=== PATIENT | male | born 1975 | race Hispanic/Latino ===

== ENCOUNTER 2017-12-15 21:24 | Emergency (ER) | payer SELFPAY ==
[2017-12-15] MEDS ORDERED: HYDROcodone/Acetaminophen 5/325 mg Tablet ONE (22:51)
[2017-12-15] MEDS ORDERED: Cyclobenzaprine 10 MG TAB ONE (22:51)
== END 2017-12-15 23:03 | disposition home or self-care (01) ==
LOC: ERS 21:24
DX: S33.5XXA Sprain of ligaments of lumbar spine, initial encounter (principal); L25.9 Unspecified contact dermatitis, unspecified cause; F17.210 Nicotine dependence, cigarettes, uncomplicated; Z71.6 Tobacco abuse counseling; X50.0XXA Overexertion from strenuous movement or load, initial encounter; Y99.0 Civilian activity done for income or pay
CPT/HCPCS: 99406

== ENCOUNTER 2017-12-23 16:30 | Emergency (ER) | payer SELFPAY | END 2017-12-23 18:47 | disposition home or self-care (01) | LOC: ERS 16:30 | DX: B35.4 Tinea corporis (principal); F17.210 Nicotine dependence, cigarettes, uncomplicated | CPT/HCPCS: 99282 ==

== ENCOUNTER 2018-02-04 17:59 | Emergency (ER) | payer SELFPAY ==
[2018-02-04] MEDS ORDERED: Dexamethasone 10 MG/ML VIAL ONE (19:16)
== END 2018-02-04 19:54 | disposition home or self-care (01) ==
LOC: ERS 17:59
DX: B86 Scabies (principal); F17.210 Nicotine dependence, cigarettes, uncomplicated
CPT/HCPCS: 96372; J1100

== ENCOUNTER 2018-02-08 16:49 | Emergency (ER) | payer SELFPAY ==
[2018-02-08] MEDS ORDERED: hydrOXYzine 25 MG TAB ONE (19:03)
[2018-02-08] MEDS ORDERED: Dexamethasone 10 MG/ML VIAL ONE (19:03)
[2018-02-08] MEDS ORDERED: Dexamethasone 4 MG TAB ONE (19:03)
== END 2018-02-08 19:17 | disposition home or self-care (01) ==
LOC: ERS 16:49
DX: L20.9 Atopic dermatitis, unspecified (principal); F17.210 Nicotine dependence, cigarettes, uncomplicated
CPT/HCPCS: 99282; J1100; J8540

== ENCOUNTER 2018-03-10 16:30 | Emergency (ER) | payer SELFPAY ==
[2018-03-10] MEDS ORDERED: methylPREDNISolone Sod Succ/PF 125 MG/2 ML VIAL ONE (16:57)
== END 2018-03-10 17:40 | disposition home or self-care (01) ==
LOC: ERS 16:30
DX: T49.2X1A Poisoning by local astringents and local detergents, accidental (unintentional), initial encounter (principal); L25.3 Unspecified contact dermatitis due to other chemical products; F17.210 Nicotine dependence, cigarettes, uncomplicated
CPT/HCPCS: 96372; J2930

== ENCOUNTER 2019-04-03 15:16 | Emergency (ER) | payer SELFPAY | END 2019-04-03 16:03 | disposition home or self-care (01) | LOC: ERS 15:16 | DX: B35.3 Tinea pedis (principal); F17.210 Nicotine dependence, cigarettes, uncomplicated | CPT/HCPCS: 99282 ==

== ENCOUNTER 2019-04-22 11:21 | Emergency (ER) | payer SELFPAY ==
[2019-04-22] MEDS ORDERED: Aspirin Chewable 81 MG TAB ONE ×2 (11:37)
[2019-04-22 12:05] LABS: #Eosinphils 0.2 thou/uL (0.0-0.7); #Lymphocytes 1.8 thou/uL (1.20-3.40); #Monocytes 0.6 thou/uL (0.11-0.59); #Neutrophils 4.4 thou/uL (1.40-6.50); %Basophils 0.5 % (0.0-1.0); %Eosinophils 2.8 % (0.0-10.0); %Lymphocytes 25.9 % (21.0-51.0); %Monocytes 8.4 % (0.0-10.0); %Neutrophils 62.6 % (42.0-75.0); Hemoglobin 14.4 g/dL (14.0-18.0); Mean Corpuscular HGB CONC 33.1 g/dL (32.0-36.0); Mean Corpuscular Hemoglobin 28.7 pg (27.0-31.0); Mean Corpuscular Volume 86.5 fL (78.0-98.0); Mean Platelet Volume 6.5 fL (7.4-10.4); Platelet Count 268 thou/uL (130-400); RBC Distribution Width 12.5 % (11.5-14.5); Red Blood Cell (RBC) Count 5.02 mill/uL (4.70-6.10); White Blood Cell (WBC) Count 7.1 thou/uL (4.8-10.8)
--- NOTE | 2019-04-22 12:22 | RAD ---
RADIOGRAPH CHEST 1 VIEW: HISTORY: 43-year-old male with chest pain. FINDINGS: There are no air space densities, pulmonary edema, pneumothorax, or cardiomegaly. The lateral costop hrenic angles are sharp. IMPRESSION: No acute cardiopulmonary findings. jn [] POS: CET
[2019-04-22 12:28] LABS: ALT (SGPT) 16 U/L (8-55); AST (SGOT) 17 U/L (5-34); Alkaline Phosphatase 113 U/L (40-150); Anion Gap 10 mmol/L (10-20); BUN (Urea Nitrogen) 12 mg/dL (8.9-20.6); Bilirubin, Total 0.4 mg/dL (0.2-1.2); Calc. Creatinine Clearance 0 mL/min (70-130); Calcium 9.1 mg/dL (7.8-10.44); Carbon Dioxide 24 mmol/L (22-29); Chloride 106 mmol/L (98-107); Estimated GFR-MDRD Greater than 90; Globulin 2.4 g/dL (2.4-3.5); Glucose 103 mg/dL (70-105); Potassium 3.9 mmol/L (3.5-5.1); Protein, Total 6.4 g/dL (6.0-8.3); Sodium 136 mmol/L (136-145)
== END 2019-04-22 12:53 | disposition home or self-care (01) ==
LOC: ERS 11:21
DX: M54.12 Radiculopathy, cervical region (principal); F17.210 Nicotine dependence, cigarettes, uncomplicated
CPT/HCPCS: 36415; 71045; 80053; 84484; 85025; 93005

== ENCOUNTER 2019-06-03 13:45 | Emergency (ER) | payer SELFPAY ==
--- NOTE | 2019-06-03 15:41 | CT ---
CT LUMBAR SPINE WITHOUT CONTRAST: HISTORY: The patient was in the ER 2 weeks ago with the same symptoms. Persistent back pain. COMPARISON: None. FINDINGS: There is straightening of normal lumbar lordosis which may be due to patient position or muscle spasm . Appropriate alignment of the spinous processes, facets, and transverse processes. Vertebral body hei ght is maintained and there is no fracture. No spondylolisthesis. No spondylolysis. Visualized alimentary canal and solid organs are unremarkable. No evidence of obstructive uropathy. No retroperitoneal mass, lymphadenopathy, or hematoma. Normal caliber aorta. Symmetric attenuation of the psoas muscles. Lumbar spine and vertebral body height is maintained and there is no fracture. Sclerosis in the righ t aspect of the sacrum likely representing a small bone island. Vacuum joint phenomenon in both sacr oiliac joints. Limited evaluation of the contents of the central spinal canal and neural foramina due to technique. T11-T12 and T12-L1: No high-grade central canal stenosis or high-grade foraminal narrowing. L1-L2: Generalized disk bulge with mild central canal stenosis. Bilaterally, neural foramen are pat ent. L2-L3: Broad-based disk bulge with a right subarticular component. There is presumed mass effect up on the traversing right L3 nerve root. Moderate right and mild left neural foraminal narrowing. L3-L4: Broad-based disk bulge flattens the ventral thecal sac. Mild central canal stenosis. Mild b ilateral neural foraminal narrowing. L4-L5: Broad-based disk bulge, ligamentum flavum thickening result in mild to moderate central canal stenosis. Mild to moderate bilateral neural foraminal narrowing. L5-S1: Broad-based disk bulge with a central and left subarticular component. There is a minimal co mponent in the right subarticular zone. No significant stenosis of the thecal sac. There is left gr eater than right mass effect upon the traversing S1 nerve roots secondary to disk material in the sub articular zones. Mild bilateral foraminal narrowing. IMPRESSION: 1. No fracture. 2. Degenerative change of the lumbar spine at L5-S1 with left greater than right mass effect upon th e traversing S1 nerve roots, narrowing of the right subarticular zone at L2-L3 with presumed mass eff ect upon the traversing right L3 nerve root, mild to moderate central canal stenosis at L3-L4 due to broad-based disk bulge, and mild to moderate central canal stenosis at L4-L5 due to broad-based disk bulge. Further evaluation with a nonemergent MRI of the lumbar spine is recommended. POS: TPC
[2019-06-03] MEDS ORDERED: Ibuprofen 800 MG TAB ONE (16:11)
[2019-06-03] MEDS ORDERED: Cyclobenzaprine 10 MG TAB ONE (16:11)
== END 2019-06-03 16:12 | disposition home or self-care (01) ==
LOC: ERS 13:45
DX: M54.5 Low back pain (principal); F17.210 Nicotine dependence, cigarettes, uncomplicated
CPT/HCPCS: 72131

== ENCOUNTER 2019-08-25 20:39 | Emergency (ER) | payer SELFPAY ==
[2019-08-25] MEDS ORDERED: Ibuprofen 200 MG TAB ONE (22:20)
[2019-08-25] MEDS ORDERED: HYDROcodone/Acetaminophen 10/325 mg Tablet ONE (22:20)
[2019-08-25] MEDS ORDERED: Diazepam 5 MG TAB ONE (22:20)
== END 2019-08-25 23:50 | disposition home or self-care (01) ==
LOC: ERS 20:39
DX: M54.5 Low back pain (principal); F17.210 Nicotine dependence, cigarettes, uncomplicated
CPT/HCPCS: 93005

== ENCOUNTER 2019-10-05 15:20 | Observation (INO) | payer SELFPAY ==
[2019-10-05 15:47] LABS: #Eosinphils 0.2 thou/uL (0.0-0.7); #Monocytes 0.8 thou/uL (0.11-0.59); #Neutrophils 5.1 thou/uL (1.40-6.50); %Basophils 0.4 % (0.0-1.0); %Eosinophils 2.4 % (0.0-10.0); %Lymphocytes 24.9 % (21.0-51.0); %Monocytes 9.9 % (0.0-10.0); %Neutrophils 62.4 % (42.0-75.0); Hemoglobin 15.1 g/dL (14.0-18.0); Mean Corpuscular HGB CONC 33.1 g/dL (32.0-36.0); Mean Corpuscular Hemoglobin 28.9 pg (27.0-31.0); Mean Corpuscular Volume 87.1 fL (78.0-98.0); Mean Platelet Volume 6.6 fL (7.4-10.4); Platelet Count 278 thou/uL (130-400); RBC Distribution Width 12.5 % (11.5-14.5); Red Blood Cell (RBC) Count 5.24 mill/uL (4.70-6.10); White Blood Cell (WBC) Count 8.2 thou/uL (4.8-10.8)
--- NOTE | 2019-10-05 15:48 | RAD ---
EXAM: Single view of the chest HISTORY: Chest pain COMPARISON: 04/22/2019 FINDINGS: Single view of the chest shows a normal sized cardiomediastinal silhouette. There is no corrine dence of consolidation, mass, or pleural effusion. The bones are unremarkable. IMPRESSION: No evidence of acute cardiopulmonary disease
[2019-10-05 16:10] LABS: ALT (SGPT) 24 U/L (8-55); AST (SGOT) 18 U/L (5-34); Albumin 4.1 g/dL (3.5-5.0); Alkaline Phosphatase 113 U/L (40-110); Anion Gap 12 mmol/L (10-20); BUN (Urea Nitrogen) 10 mg/dL (8.9-20.6); Bilirubin, Total 0.2 mg/dL (0.2-1.2); CK (CPK) 223 U/L (30-200); Calc. Creatinine Clearance 0 mL/min (70-130); Calcium 8.6 mg/dL (7.8-10.44); Carbon Dioxide 24 mmol/L (22-29); Chloride 104 mmol/L (98-107); Estimated GFR-MDRD Greater than 90; Globulin 2.4 g/dL (2.4-3.5); Glucose 95 mg/dL (70-105); Lipase 11 U/L (8-78); Potassium 3.7 mmol/L (3.5-5.1); Protein, Total 6.5 g/dL (6.0-8.3); Sodium 136 mmol/L (136-145)
[2019-10-05 16:31] LABS: CKMB 2.1 ng/mL (0-6.6)
[2019-10-05] MEDS ORDERED: Aspirin Chewable 81 MG TAB ONE ×2 (16:36→16:38)
[2019-10-05 19:48] LABS: Troponin I Less than 0.010 ng/mL (< 0.028)
[2019-10-05 21:51] VITALS: BMI 32.5
[2019-10-05] MEDS ORDERED: Ketorolac Tromethamine 30 MG/ML VIAL IVP SCH (23:30)
--- NOTE | 2019-10-06 02:51 | HP ---
TIME OF ASSESSMENT: 2200 hours. CHIEF COMPLAINT: Left-sided chest and shoulder pain. HISTORY OF PRESENT ILLNESS: Mr. Licona is a 43-year-old gentleman with no known comorbidities, who presents to the emergency department today complaining of a 2-day history of left-sided chest discomfort. The patient states the pain is also involving his left shoulder that is made worse with any movement of his arm. He denies any upper extremity weakness but has noted paresthesia of the left index finger. The patient denies any trauma or injuries. Denies any heavy lifting. 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 He has not tried taking anything for pain at home. Denies any associated shortness of breath, nausea, vomiting, or diaphoresis. No lightheadedness or dizziness. In the emergency department, he underwent an EKG that showed a normal sinus rhythm with a heart rate of 98. He had a chest x-ray done, which showed no evidence of acute cardiopulmonary disease. Laboratory studies were done showing a normal blood count. Sodium was 136, potassium 3.7, BUN 10, creatinine 0.72, GFR greater than 90. LFTs are unremarkable. Alkaline phosphatase was 113. CK 223. Initial troponin indeterminate 0.030. Second and third troponin, negative. He did receive 324 mg of aspirin in the emergency department. PAST MEDICAL HISTORY: Sciatica. PAST SURGICAL HISTORY: None. SOCIAL HISTORY: The patient denies any alcohol consumption or illicit drug use. Does report smoking half a pack of cigarettes a day. FAMILY HISTORY: Noncontributory. ALLERGIES: NO KNOWN DRUG ALLERGIES. CURRENT MEDICATIONS: None. PHYSICAL EXAMINATION: GENERAL: The patient appears well developed, well nourished, is in no acute distress. He does appear to be in some discomfort. Wincing whenever he moves due to the pain involving his left shoulder. VITAL SIGNS: Temperature 98.3, pulse 79, respirations 14, O2 saturation 96% on room air, blood pressure 111/74. HEENT: Normocephalic and atraumatic. Pupils are equal, round, and reactive to light. Sclerae without icterus. Oropharynx is clear. NECK: Supple without lymphadenopathy. LUNGS: Clear to auscultation bilaterally without wheezes, rales, or rhonchi. CARDIAC: Regular rate and rhythm without audible murmurs, rubs, or gallops. Notable left upper chest wall tenderness to palpation. Pain elicited with left upper extremity extension and flexion, even more so against resistance. ABDOMEN: Soft, nontender, nondistended. Normoactive bowel sounds present. EXTREMITIES: Left upper extremity with limited range of motion due to discomfort in the left shoulder. Patient with 3/5 power in the left upper extremity compared to 5/5 in the right upper extremity. The patient states it is due to the pain when flexing or extending against resistance. Normal hand java programmer analyst strength. Has minimal residual numbness involving the left index finger. States the pain from his left shoulder at times radiates down to his elbow and the radial aspect of his forearm. No pain or tenderness involving the elbow joint or wrist joint. No bruising. No bony deformity. SKIN: Warm and dry. NEUROLOGIC: Alert and oriented x3, with slightly reduced sensation involving the left index finger. No other focal neurology. INVESTIGATIONS: As mentioned above in HPI. IMPRESSION AND PLAN: Mr. Licona is a pleasant 43-year-old gentleman who presents with left upper chest and left shoulder pain associated with tenderness to palpation and limited range of motion due to pain with some slightly altered sensation involving the left index finger. This is unlikely to be cardiac in nature, though there is no recent trauma or injury that could explain the degree of pain. Given the altered sensation involving the index finger, we will plan to obtain an MRI of the left shoulder joint to assess for possibility of musculoskeletal injury such as rotator cuff tear. We will try Toradol 30 mg IV x1 for pain. Troponins have been trended and negative. The patient is a smoker. No other comorbidities and has never undergone any type of cardiac investigations in the past and does not follow with a primary care physician. He would benefit from a stress test. We will keep him n.p.o. at midnight. Further investigations and recommendations as per Day Team. We will add on magnesium, TSH, and lipid panel. For gastrointestinal prophylaxis, he will be started on famotidine. Deep vein thrombosis prophylaxis with mechanical SCDs. The patient is ambulatory. Code status is full. Surrogate decision maker is his , Destiney Licona. The patient's case was discussed with attending, who agrees with plan of care as described above. Job ID: [id number]
[2019-10-06] MEDS: Sodium Chloride 0.9% 1,000 ML IV SCH ×2 (03:26→19:21)
[2019-10-06] MEDS: traMADol HCl 50 MG TAB PO PRN ×2 (03:32→14:47)
[2019-10-06] MEDS ORDERED: ADENOSINE 60 MG/20 ML VIAL ONE (08:27)
--- NOTE | 2019-10-06 12:01 | NM ---
EXAM: CARDIAC SPECT HISTORY: Chest pain TECHNIQUE: A myocardial perfusion scan was performed using the single isotope 1 day protocol with tyalor hnetium 99m sestamibi. [10 mCi] was injected intravenously for the rest exam followed by 30 mCi for the stress study. Followed by stress with adenosine was monitored and interpreted by BARAK Howell FINDINGS: Homogeneous tracer distribution is seen in the myocardial segments on stress and rest image s without fixed or reversible defects. Gated SPECT LVEF: 46% Wall motion exam: Global hypokinesis IMPRESSION: No evidence of reversible ischemia
[2019-10-06] MEDS ORDERED: Ibuprofen 200 MG TAB PO PRN (13:28)
[2019-10-06] MEDS ORDERED: Acetaminophen 325 MG TAB PO PRN (13:29)
--- NOTE | 2019-10-06 14:36 | MRI ---
MRI OF LEFT SHOULDER: DATE: 10/06/2019. PROVIDED CLINICAL HISTORY: Left shoulder pain. FINDINGS: Evaluation is limited by patient motion. The components of the rotator cuff demonstrate no evidence for a full-thickness tear. The long head biceps tendon appears intact and normally located. The amount of fluid within the glenohumeral joint appears physiologic, as does the amount of fluid within the subacromial subdeltoid bursa. Acromiocl avicular joint osteoarthrosis is demonstrated with mild mass effect upon the subjacent supraspinatus. No focal concerning regional marrow or muscular signal abnormality apparent. IMPRESSION: 1. Limited study due to patient motion without evidence for an acute process. 2. Acromioclavicular joint osteoarthrosis. POS: OFF
[2019-10-06 17:09] VITALS: BP 121/77; TEMP 98.3
--- NOTE | 2019-10-07 10:13 | DIS ---
DATE OF ADMISSION: 10/05/2019 DATE OF DISCHARGE: 10/06/2019 PRIMARY CARE PROVIDER: Unknown. DISCHARGE DIAGNOSES: 1. Chest pain. 2. Chest pain, most likely secondary to musculoskeletal etiology. 3. Left acromioclavicular joint osteoarthrosis. DISCHARGE MEDICATIONS: 1. Tylenol 325 mg every 6 hours as needed. 2. Ibuprofen 200 mg every 6 hours as needed. 3. Tramadol 50 mg every 6 hours as needed. HOSPITAL COURSE: Mr. Licona is a pleasant 43-year-old gentleman, who was admitted to [facility] on 10/05/2019, for chest pain and left shoulder pain. Please refer to Ms. Peres's history and physical note dated 10/06/2019, for further details. He had a nuclear stress test, which did not show any evidence of reversible ischemia. Left ventricular ejection fraction was 46%, with global hypokinesis. However, 2D echo showed LVEF of 50-55%. Pulmonary embolism was ruled out with a negative D-dimer. He had MRI of the left shoulder, which showed acromioclavicular joint osteoarthrosis. He is advised to follow up with primary care provider for the same. Many thanks for allowing me to participate in your patient's care. Please feel free to contact me with any questions or concerns. DISCHARGE DESTINATION: Home. POST ACUTE CARE FOLLOWUP: With primary care provider in 3 days. ACTIVITY: Ad law. DIET: Regular. Job ID: [id number] [id number]
== END 2019-10-06 19:00 | disposition home or self-care (01) ==
LOC: ERS 15:20 → 2SW 21:19
PROVIDERS: ADMIT Internal Medicine; ATTEND Internal Medicine
DX: R07.89 Other chest pain (principal); M19.012 Primary osteoarthritis, left shoulder; F17.210 Nicotine dependence, cigarettes, uncomplicated
CPT/HCPCS: 36415; 71045; 78452; 80053; 80061; 82550; 82553; 83690; 83735; 84443; 84484; 85025; 85379; 93005; 93017; 93306; 94760; 96361; A9500; G0378; J0153; J1885

== ENCOUNTER 2020-04-25 11:32 | Emergency (ER) | payer SELFPAY ==
[2020-04-25] MEDS ORDERED: Ketorolac Tromethamine 30 MG/ML VIAL ONE (11:57)
== END 2020-04-25 12:40 | disposition home or self-care (01) ==
LOC: ERS 11:32
DX: S39.012A Strain of muscle, fascia and tendon of lower back, initial encounter (principal); X50.0XXA Overexertion from strenuous movement or load, initial encounter
CPT/HCPCS: 96372; 99283; J1885

== ENCOUNTER 2021-04-01 12:07 | Emergency (ER) | payer SELFPAY ==
[2021-04-01] MEDS ORDERED: Cyclobenzaprine 10 MG TAB ONE (12:35)
[2021-04-01] MEDS ORDERED: Ketorolac Tromethamine 30 MG/ML VIAL ONE (12:35)
== END 2021-04-01 12:47 | disposition home or self-care (01) ==
LOC: ERS 12:07
DX: M62.830 Muscle spasm of back (principal)
CPT/HCPCS: 96372; 99283; J1885

== ENCOUNTER 2021-10-25 11:05 | Emergency (ER) | payer SELFPAY ==
[2021-10-25] MEDS ORDERED: Ketorolac Tromethamine 30 MG/ML VIAL ONE (12:54)
[2021-10-25] MEDS ORDERED: Cyclobenzaprine 10 MG TAB ONE (12:54)
[2021-10-25 13:30] LABS: Bilirubin Negative (Negative); Blood, Urine Negative (Negative); Clarity Clear (Clear); Glucose, Urine (Dipstick) Normal (Negative); Ketone, Urine Negative (Negative); Leukocyte Negative Leu/uL (Negative); Nitrite Negative (Negative); Protein, Urine (Dipstick) Negative (Neg-Trace); Specific Gravity, Urine 1.024 (1.002-1.036); Urobilinogen Normal mg/dL (Less than 2); pH, Urine 6.5 (5.0-9.0)
== END 2021-10-25 12:20 | disposition home or self-care (01) ==
LOC: ERS 11:05
DX: M62.830 Muscle spasm of back (principal); G89.29 Other chronic pain
CPT/HCPCS: 81003; 87086; 96372; 99284; J1885

== ENCOUNTER 2022-08-28 07:52 | Emergency (ER) | payer SELFPAY ==
[2022-08-28] MEDS ORDERED: Ketorolac Tromethamine 30 MG/ML VIAL ONE (09:27)
[2022-08-28 10:17] LABS: #Basophils 0.1 thou/uL (0.0-0.2); #Eosinphils 0.1 thou/uL (0.0-0.7); #Lymphocytes 1.9 thou/uL (1.20-3.40); #Monocytes 0.5 thou/uL (0.11-0.59); #Neutrophils 5.7 thou/uL (1.40-6.50); %Basophils 0.8 % (0.0-1.0); %Eosinophils 1.4 % (0.0-10.0); %Lymphocytes 22.9 % (21.0-51.0); %Monocytes 6.2 % (0.0-10.0); %Neutrophils 68.7 % (42.0-75.0); Mean Corpuscular HGB CONC 31.5 g/dL (32.0-36.0); Mean Corpuscular Hemoglobin 28.4 pg (27.0-31.0); Mean Corpuscular Volume 90.3 fl (78.0-98.0); Mean Platelet Volume 6.5 fL (7.4-10.4); Platelet Count 299 10x3/uL (130-400); RBC Distribution Width 12.4 % (11.5-14.5); Red Blood Cell (RBC) Count 5.64 mill/uL (4.70-6.10); White Blood Cell (WBC) Count 8.3 10x3/uL (4.8-10.8)
[2022-08-28 10:45] LABS: ALT (SGPT) 21 U/L (8-55); AST (SGOT) 21 U/L (5-34); Albumin 4.2 g/dL (3.5-5.0); Alkaline Phosphatase 105 U/L (40-110); Anion Gap 11 mmol/L (10-20); BUN (Urea Nitrogen) 13 mg/dL (8.9-20.6); Bilirubin, Total 0.4 mg/dL (0.2-1.2); Calc. Creatinine Clearance 0 mL/min (70-130); Calcium 8.9 mg/dL (7.8-10.44); Carbon Dioxide 23 mmol/L (22-29); Chloride 106 mmol/L (98-107); Estimated GFR 116; Globulin 2.6 g/dL (2.4-3.5); Glucose 102 mg/dL (70-105); Protein, Total 6.8 g/dL (6.0-8.3); Sodium 136 mmol/L (136-145)
== END 2022-08-28 11:20 | disposition home or self-care (01) ==
LOC: ERS 07:52
DX: M25.512 Pain in left shoulder (principal)
CPT/HCPCS: 36415; 71045; 80053; 83880; 84484; 85025; 93005; 96372; J1885

== ENCOUNTER 2022-11-25 12:13 | Emergency (ER) | payer SELFPAY ==
[2022-11-25 13:31] LABS: #Eosinphils 0.2 thou/uL (0.0-0.7); #Monocytes 0.7 thou/uL (0.11-0.59); #Neutrophils 5.3 thou/uL (1.40-6.50); %Basophils 0.5 % (0.0-1.0); %Eosinophils 2.6 % (0.0-10.0); %Monocytes 8.4 % (0.0-10.0); %Neutrophils 64.5 % (42.0-75.0); Hemoglobin 15.8 g/dL (14.0-18.0); Mean Corpuscular HGB CONC 32.3 g/dL (32.0-36.0); Mean Corpuscular Hemoglobin 29.2 pg (27.0-31.0); Mean Corpuscular Volume 90.2 fl (78.0-98.0); Mean Platelet Volume 6.4 fL (7.4-10.4); Platelet Count 333 10x3/uL (130-400); RBC Distribution Width 12.6 % (11.5-14.5); Red Blood Cell (RBC) Count 5.43 mill/uL (4.70-6.10); White Blood Cell (WBC) Count 8.1 10x3/uL (4.8-10.8)
[2022-11-25 13:56] LABS: ALT (SGPT) 20 U/L (8-55); AST (SGOT) 15 U/L (5-34); Albumin 4.2 g/dL (3.5-5.0); Alkaline Phosphatase 113 U/L (40-110); Anion Gap 13 mmol/L (10-20); BUN (Urea Nitrogen) 12 mg/dL (8.9-20.6); Bilirubin, Total 0.3 mg/dL (0.2-1.2); Calc. Creatinine Clearance 0 mL/min (70-130); Carbon Dioxide 22 mmol/L (22-29); Chloride 107 mmol/L (98-107); Estimated GFR 115; Globulin 2.5 g/dL (2.4-3.5); Glucose 86 mg/dL (70-105); Potassium 4.5 mmol/L (3.5-5.1); Protein, Total 6.7 g/dL (6.0-8.3); Sodium 137 mmol/L (136-145)
[2022-11-25] MEDS ORDERED: Diazepam 5 MG TAB ONE (16:16)
[2022-11-25] MEDS ORDERED: Ketorolac Tromethamine 30 MG/ML VIAL ONE (16:16)
[2022-11-26 04:20] LABS: Bilirubin Negative (Negative); Blood, Urine Negative (Negative); Clarity Clear (Clear); Glucose, Urine (Dipstick) Normal (Negative); Ketone, Urine Negative (Negative); Leukocyte Negative Leu/uL (Negative); Nitrite Negative (Negative); Protein, Urine (Dipstick) Negative (Neg-Trace); Specific Gravity, Urine 1.027 (1.002-1.036); Urobilinogen Normal mg/dL (Less than 2)
== END 2022-11-25 16:45 | disposition home or self-care (01) ==
LOC: ERS 12:13
DX: M54.50 Low back pain, unspecified (principal); F17.210 Nicotine dependence, cigarettes, uncomplicated
CPT/HCPCS: 36415; 80053; 81003; 85025; 96372; 99283; J1885

== ENCOUNTER 2023-09-17 08:55 | Emergency (ER) | payer OTHER, SELFPAY ==
[2023-09-17] MEDS ORDERED: Lidocaine 4% Patch TD SCH (10:00)
[2023-09-17] MEDS ORDERED: Ketorolac Tromethamine 30 MG/ML VIAL ONE (10:24)
[2023-09-17] MEDS ORDERED: Cyclobenzaprine 10 MG TAB ONE (10:24)
[2023-09-17] MEDS ORDERED: Dexamethasone 4 mg/ml Vial ONE (10:25)
[2023-09-17] MEDS ORDERED: Transdermal Patch Removal TOP SCH (22:00)
== END 2023-09-17 11:16 | disposition home or self-care (01) ==
LOC: ERS 08:55
DX: M54.41 Lumbago with sciatica, right side (principal); F17.210 Nicotine dependence, cigarettes, uncomplicated
CPT/HCPCS: 72100; 96372; J1100; J1885

== ENCOUNTER 2024-10-07 15:43 | Emergency (ER) | payer OTHER ==
[2024-10-07] MEDS ORDERED: Dexamethasone 10 MG/ML VIAL ONE (17:18)
[2024-10-07] MEDS ORDERED: Ketorolac Tromethamine 30 MG (1 mL) VIAL ONE (17:18)
== END 2024-10-07 17:38 | disposition home or self-care (01) ==
LOC: ERS 15:43
DX: J10.1 Influenza due to other identified influenza virus with other respiratory manifestations (principal); F17.210 Nicotine dependence, cigarettes, uncomplicated
CPT/HCPCS: 87428; 96372; 99283; J1100; J1885